=== PATIENT | female | born 1975 | race Caucasian/White ===

== ENCOUNTER 2022-01-31 04:40 | Inpatient (IN) | payer OTHER ==
[~2022-01-31] VITALS: Ht 147.3 cm; Wt 60.8 kg
[2022-01-31 05:57] LABS: Basophils # (auto) 0.1 10 ^3/uL (0-0.2); Basophils % (auto) 0.6 % (0.0-2.0); Eosinophils # (auto) 0.2 10 ^3/uL (0-0.8); Eosinophils % (auto) 2.7 % (0.0-7.0); Hematocrit 41.7 % (36.0-46.0); Hemoglobin 12.7 g/dL (12.2-16.2); Lymphocytes # (auto) 1.8 10 ^3/uL (0.4-5.4); Lymphocytes % (auto) 22.4 % (10.0-50.0); Mean Corpuscular Hemoglobin 24.8 pg (28.0-32.0); Mean Corpuscular Hgb Conc. 30.5 g/dL (32.0-36.0); Mean Corpuscular Volume 81.2 fL (80.0-100.0); Monocytes # (auto) 0.6 10 ^3/uL (0-1.3); Monocytes % (auto) 7.1 % (0.0-12.0); Neutrophils # (auto) 5.5 10 ^3/uL (1.6-8.6); Neutrophils % (auto) 67.2 % (37.0-80.0); Nucleated Red Blood Cells % 0.1 %; Red Blood Cells 5.13 10^6/uL (4.0-5.20); Red Cell Distribution Width 14.4 % (11.8-14.3); White Blood Cell 8.1 10^3/uL (4.4-10.8)
[2022-01-31 06:16] LABS: Alanine Aminotransferase 83 U/L (13-56); Albumin 2.8 g/dL (3.4-5.0); Anion Gap 8 (5-15); Aspartate Aminotransferase 68 U/L (15-37); Blood Urea Nitrogen 9 mg/dL (7-18); Carbon Dioxide 20 mmol/L (21-32); Chloride 110 mmol/L (98-107); GFR African American 172 mL/min; GFR Non-African American 142 mL/min; Glucose 118 mg/dL (74-106); Sodium 138 mmol/L (136-145)
[2022-01-31 06:18] LABS: Alkaline Phosphatase 97 U/L (45-117); Bilirubin, Total 0.3 mg/dL (0.2-1.0); Total Protein 6.9 g/dL (6.4-8.2)
[2022-01-31] MEDS ORDERED: ONDANSETRON HCL 4 MG/2 ML VIAL IV ONE (06:45)
[2022-01-31] MEDS ORDERED: SODIUM CHLORIDE 0.9% 1,000 ML IV ONE ×2 (06:45→10:45)
[2022-01-31] MEDS ORDERED: methylPREDNISolone SOD SUCC 125 MG/2 ML VL IV ONE (06:45)
[2022-01-31 07:12] LABS: Urine Bacteria FEW /hpf (None Seen); Urine Blood Negative /uL (Negative); Urine Hyaline Cast FEW /lpf (0 - 2); Urine Mucus FEW (None Seen); Urine Specific Gravity 1.018 (1.001-1.035); Urine WBC 75 /hpf (0 - 5)
[2022-01-31] MEDS ORDERED: ACETAMINOPHEN 325 MG TAB PO ONE (07:15)
[2022-01-31 07:22] LABS: Alcohol, Urine < 3.0 mg/dL (0-10); Amphetamine Screen, Urine POSITIVE (NEGATIVE); Barbiturate Scree,Urine NEGATIVE (NEGATIVE); Benzodiazephine Screen, Urine NEGATIVE (NEGATIVE); Cannabinoid Screen, Urine NEGATIVE (NEGATIVE); Cocaine Screen, Urine NEGATIVE (NEGATIVE); Opiate Scree,Urine NEGATIVE (NEGATIVE); Phencyclidine Screen, Urine NEGATIVE (NEGATIVE)
[2022-01-31] MEDS ORDERED: cefTRIAXone 1GM/50ML D5W 50 ML IV ONE (09:45)
[2022-01-31] MEDS ORDERED: ONDANSETRON HCL 4 MG/2 ML VIAL IV PRN (10:45)
[2022-01-31] MEDS ORDERED: MORPHINE SULFATE INJ 2 MG/ml SYRG IV PRN (10:45)
[2022-01-31] MEDS: FUROSEMIDE 20 MG/2 ML VIAL IV ONE ×2 (10:45→15:57)
[2022-01-31] MEDS ORDERED: IPRATROPIUM BROM 0.5 MG/2.5ML INH SOL NEB PRN (10:45)
[2022-01-31] MEDS ORDERED: ALBUTEROL SULF 2.5 MG/0.5ML(0.5%) NEB SOLN NEB PRN (10:45)
[2022-01-31] MEDS ORDERED: NITROGLYCERIN 0.4 MG SL TAB SL PRN (10:45)
[2022-01-31] MEDS ORDERED: ENOXAPARIN SOD 60 MG/0.6 ML SYRINGE SC ONE (10:45)
[2022-01-31] MEDS ORDERED: AZITHROMYCIN 500MG/ 250ML 250 ML IV ONE (10:45)
[2022-01-31] MEDS ORDERED: LORazepam 2MG/ML-1ML VIAL IV ONE (11:15)
[2022-01-31 12:15] LABS: Cholesterol 114 mg/dL (< 200)
[2022-01-31 12:18] LABS: HDL Cholesterol 53 mg/dL (40-59); LDL Cholesterol 60 mg/dL (< 100); Triglycerides 97 mg/dL (< 150)
[2022-01-31] MEDS: NTG 0.1MG/HR TOPICAL PATCH TD ONE ×2 (12:35→15:03)
[2022-01-31] MEDS: ALBUTEROL SULF 2.5 MG/0.5ML(0.5%) NEB SOLN NEB SCH ×2 (12:52→18:01)
[2022-01-31] MEDS: IPRATROPIUM BROM 0.5 MG/2.5ML INH SOL NEB SCH ×2 (12:52→18:01)
[2022-01-31 15:03] VITALS: BP 111/88
[2022-02-01] MEDS: MORPHINE SULFATE INJ 2 MG/ml SYRG IV PRN (01:34)
[2022-02-01 04:36] LABS: Basophils # (auto) 0 10 ^3/uL (0-0.2); Basophils % (auto) 0.1 % (0.0-2.0); Eosinophils # (auto) 0 10 ^3/uL (0-0.8); Mean Corpuscular Hgb Conc. 32.3 g/dL (32.0-36.0); Monocytes # (auto) 0.8 10 ^3/uL (0-1.3)
[2022-02-01 04:39] LABS: Hematocrit 36.1 % (36.0-46.0); Hemoglobin 11.6 g/dL (12.2-16.2); Lymphocytes % (auto) 9.7 % (10.0-50.0); Mean Corpuscular Hemoglobin 25.3 pg (28.0-32.0); Mean Corpuscular Volume 78.3 fL (80.0-100.0); Monocytes % (auto) 7.3 % (0.0-12.0); Neutrophils # (auto) 8.8 10 ^3/uL (1.6-8.6); Neutrophils % (auto) 82.9 % (37.0-80.0); Nucleated Red Blood Cells % 0.1 %; Red Blood Cells 4.61 10^6/uL (4.0-5.20); Red Cell Distribution Width 14.3 % (11.8-14.3); White Blood Cell 10.6 10^3/uL (4.4-10.8)
[2022-02-01 04:52] LABS: Albumin 2.7 g/dL (3.4-5.0); BUN/Creatinine Ratio 22.1; Calcium 8.4 mg/dL (8.5-10.1); Potassium 4.3 mmol/L (3.5-5.1)
[2022-02-01 04:55] LABS: Bilirubin, Total 0.2 mg/dL (0.2-1.0); Total Protein 6.4 g/dL (6.4-8.2)
[2022-02-01] MEDS: ALBUTEROL SULF 2.5 MG/0.5ML(0.5%) NEB SOLN NEB SCH ×3 (05:27→18:14)
[2022-02-01] MEDS: IPRATROPIUM BROM 0.5 MG/2.5ML INH SOL NEB SCH ×3 (05:27→18:14)
[2022-02-01] MEDS: FUROSEMIDE 20 MG/2 ML VIAL IV SCH ×2 (06:22→18:29)
[2022-02-01] MEDS: cefTRIAXone 1GM/50ML D5W 50 ML IV SCH (09:09)
[2022-02-01] MEDS: NICOTINE 14 MG/24HR TOPICAL PATCH TD SCH (10:00)
[2022-02-01] MEDS: AZITHROMYCIN 500MG/ 250ML 250 ML IV SCH (10:11)
[2022-02-01] MEDS: methylPREDNISolone SOD SUCC 125 MG/2 ML VL IV SCH ×2 (10:11→22:10)
[2022-02-01] MEDS: ACETAMINOPHEN 325 MG TAB PO PRN (10:12)
[2022-02-01 10:55] VITALS: BP 128/62
[2022-02-01 13:00] VITALS: BP 108/83
[2022-02-01 17:00] VITALS: BP 133/84
[2022-02-01 22:00] VITALS: BP 117/63
[2022-02-02 05:00] VITALS: BP 141/78
[2022-02-02] MEDS: FUROSEMIDE 20 MG/2 ML VIAL IV SCH (05:13)
[2022-02-02 05:50] LABS: Basophils # (auto) 0 10 ^3/uL (0-0.2); Basophils % (auto) 0.2 % (0.0-2.0); Eosinophils # (auto) 0 10 ^3/uL (0-0.8); Hematocrit 36.6 % (36.0-46.0); Lymphocytes # (auto) 0.7 10 ^3/uL (0.4-5.4); Monocytes # (auto) 0.2 10 ^3/uL (0-1.3); Monocytes % (auto) 1.8 % (0.0-12.0)
[2022-02-02 05:57] LABS: Hemoglobin 11.5 g/dL (12.2-16.2); Lymphocytes % (auto) 5.8 % (10.0-50.0); Mean Corpuscular Hemoglobin 24.3 pg (28.0-32.0); Mean Corpuscular Hgb Conc. 31.3 g/dL (32.0-36.0); Mean Corpuscular Volume 77.4 fL (80.0-100.0); Neutrophils # (auto) 11.6 10 ^3/uL (1.6-8.6); Neutrophils % (auto) 92.2 % (37.0-80.0); Red Blood Cells 4.72 10^6/uL (4.0-5.20); Red Cell Distribution Width 14.2 % (11.8-14.3); White Blood Cell 12.6 10^3/uL (4.4-10.8)
[2022-02-02 06:08] LABS: Calcium 8.8 mg/dL (8.5-10.1); Potassium 4.1 mmol/L (3.5-5.1)
[2022-02-02] MEDS: IPRATROPIUM BROM 0.5 MG/2.5ML INH SOL NEB SCH ×3 (06:16→19:08)
[2022-02-02] MEDS: ALBUTEROL SULF 2.5 MG/0.5ML(0.5%) NEB SOLN NEB SCH ×3 (06:16→19:08)
[2022-02-02] MEDS: methylPREDNISolone SOD SUCC 125 MG/2 ML VL IV SCH (08:39)
[2022-02-02] MEDS: NICOTINE 14 MG/24HR TOPICAL PATCH TD SCH (08:39)
[2022-02-02] MEDS: cefTRIAXone 1GM/50ML D5W 50 ML IV SCH (08:39)
[2022-02-02] MEDS: AZITHROMYCIN 500MG/ 250ML 250 ML IV SCH (08:39)
[2022-02-02 09:00] VITALS: BP 135/69
[2022-02-02] MEDS ORDERED: LISINOPRIL 10 MG TAB PO ONE (10:15)
[2022-02-02] MEDS ORDERED: CARVEDILOL 3.125 MG TAB PO ONE (10:15)
[2022-02-02] MEDS ORDERED: THIAMINE 100mg/ml INJ (200mg/2ml VIAL) IV ONE (10:15)
[2022-02-02] MEDS ORDERED: SPIRONOLACTONE 25 MG TAB PO ONE (10:15)
[2022-02-02 13:00] VITALS: BP 130/74
[2022-02-02 17:00] VITALS: BP 151/77
[2022-02-02] MEDS: MORPHINE SULFATE INJ 2 MG/ml SYRG IV PRN (17:42)
[2022-02-02] MEDS: FUROSEMIDE 40 MG/4 ML VIAL IV SCH (17:49)
[2022-02-02] MEDS: ACETAMINOPHEN 325 MG TAB PO PRN (17:50)
[2022-02-02 22:00] VITALS: BP 133/74
[2022-02-02] MEDS: CARVEDILOL 3.125 MG TAB PO SCH (22:07)
[2022-02-02] MEDS: POTASSIUM CHL 20 Meq TABLET PO SCH (22:07)
[2022-02-03] MEDS: FUROSEMIDE 40 MG/4 ML VIAL IV SCH ×2 (04:51→17:16)
[2022-02-03] MEDS: ACETAMINOPHEN 325 MG TAB PO PRN ×2 (04:51→12:22)
[2022-02-03 04:58] LABS: BUN/Creatinine Ratio 41.1; Calcium 8.5 mg/dL (8.5-10.1); Potassium 4.6 mmol/L (3.5-5.1)
[2022-02-03 05:00] VITALS: BP 123/68
[2022-02-03] MEDS: IPRATROPIUM BROM 0.5 MG/2.5ML INH SOL NEB SCH ×3 (06:44→19:08)
[2022-02-03] MEDS: ALBUTEROL SULF 2.5 MG/0.5ML(0.5%) NEB SOLN NEB SCH ×3 (06:44→19:08)
[2022-02-03 08:00] VITALS: BP 129/67
[2022-02-03] MEDS: cefTRIAXone 1GM/50ML D5W 50 ML IV SCH (09:19)
[2022-02-03] MEDS: NICOTINE 14 MG/24HR TOPICAL PATCH TD SCH (09:35)
[2022-02-03] MEDS: SPIRONOLACTONE 25 MG TAB PO SCH (09:36)
[2022-02-03] MEDS: POTASSIUM CHL 20 Meq TABLET PO SCH ×2 (09:36→21:59)
[2022-02-03] MEDS: LISINOPRIL 10 MG TAB PO SCH (10:00)
[2022-02-03] MEDS ORDERED: THIAMINE 100mg/ml INJ (200mg/2ml VIAL) IV SCH (10:00)
[2022-02-03] MEDS ORDERED: LISINOPRIL 10 MG TAB PO SCH (10:00)
[2022-02-03] MEDS: CARVEDILOL 3.125 MG TAB PO SCH ×2 (10:33→21:59)
[2022-02-03] MEDS: LORazepam 0.5 MG TAB PO PRN ×2 (10:33→21:59)
[2022-02-03 11:01] VITALS: BP 129/67
[2022-02-03 12:00] VITALS: BP 118/73
[2022-02-03 16:00] VITALS: BP 102/62
[2022-02-03 22:00] VITALS: BP 108/72
[2022-02-04 05:00] VITALS: BP 103/56
[2022-02-04] MEDS: FUROSEMIDE 40 MG/4 ML VIAL IV SCH (06:02)
[2022-02-04 06:10] LABS: Calcium 8.8 mg/dL (8.5-10.1); Potassium 4.3 mmol/L (3.5-5.1)
[2022-02-04 06:12] LABS: BUN/Creatinine Ratio 54.2
[2022-02-04] MEDS: ALBUTEROL SULF 2.5 MG/0.5ML(0.5%) NEB SOLN NEB SCH ×3 (06:36→18:07)
[2022-02-04] MEDS: IPRATROPIUM BROM 0.5 MG/2.5ML INH SOL NEB SCH ×3 (06:36→18:07)
[2022-02-04] MEDS: MORPHINE SULFATE INJ 2 MG/ml SYRG IV PRN (09:15)
[2022-02-04 09:23] VITALS: BP 119/75
[2022-02-04] MEDS ORDERED: KETOROLAC TROMETH 30 MG/ML 1ML VIAL IV ONE (09:45)
[2022-02-04] MEDS: LISINOPRIL 10 MG TAB PO SCH (10:00)
[2022-02-04] MEDS: THIAMINE HCL 100 MG TAB PO SCH (10:18)
[2022-02-04] MEDS: SPIRONOLACTONE 25 MG TAB PO SCH (10:18)
[2022-02-04] MEDS: cefTRIAXone 1GM/50ML D5W 50 ML IV SCH (10:18)
[2022-02-04] MEDS: CARVEDILOL 3.125 MG TAB PO SCH ×2 (10:19→21:24)
[2022-02-04] MEDS: POTASSIUM CHL 20 Meq TABLET PO SCH (10:19)
[2022-02-04] MEDS: NICOTINE 14 MG/24HR TOPICAL PATCH TD SCH (10:21)
[2022-02-04] MEDS: ACETAMINOPHEN 325 MG TAB PO PRN (10:24)
[2022-02-04 11:04] LABS: Hepatitis A Ab IgM Negative
[2022-02-04 11:05] LABS: Hepatitis B Core IgM Negative; Hepatitis C Antibody Negative (Negative)
[2022-02-04 13:00] VITALS: BP 105/61
[2022-02-04] MEDS: FUROSEMIDE 40 MG TAB PO SCH (13:20)
[2022-02-04 16:51] VITALS: BP 106/64
[2022-02-04] MEDS: KETOROLAC TROMETH 30 MG/ML 1ML VIAL IV PRN (21:32)
[2022-02-04 22:00] VITALS: BP 100/55
[2022-02-05] MEDS: KETOROLAC TROMETH 30 MG/ML 1ML VIAL IV PRN (04:47)
[2022-02-05 05:00] VITALS: BP 115/77
[2022-02-05] MEDS: ALBUTEROL SULF 2.5 MG/0.5ML(0.5%) NEB SOLN NEB SCH ×2 (07:00→12:14)
[2022-02-05] MEDS: IPRATROPIUM BROM 0.5 MG/2.5ML INH SOL NEB SCH ×2 (07:00→12:14)
[2022-02-05 09:00] VITALS: BP 98/63
[2022-02-05] MEDS ORDERED: POTA-220 PO (09:49)
[2022-02-05] MEDS ORDERED: FURO1TAB31 PO (09:49)
[2022-02-05] MEDS ORDERED: CAR3125T PO (09:49)
[2022-02-05] MEDS ORDERED: SPIR25TA PO (09:49)
[2022-02-05] MEDS ORDERED: LISI-716 PO (09:49)
[2022-02-05] MEDS: NICOTINE 14 MG/24HR TOPICAL PATCH TD SCH (10:00)
[2022-02-05] MEDS: LISINOPRIL 10 MG TAB PO SCH (10:00)
[2022-02-05] MEDS: cefTRIAXone 1GM/50ML D5W 50 ML IV SCH (10:29)
[2022-02-05] MEDS: THIAMINE HCL 100 MG TAB PO SCH (10:30)
[2022-02-05] MEDS: SPIRONOLACTONE 25 MG TAB PO SCH (10:31)
[2022-02-05] MEDS: CARVEDILOL 3.125 MG TAB PO SCH (10:33)
[2022-02-05] MEDS: POTASSIUM CHL 20 Meq TABLET PO SCH (10:34)
[2022-02-05] MEDS: FUROSEMIDE 40 MG TAB PO SCH (10:35)
[2022-02-05 13:33] VITALS: BP 98/63
== END 2022-02-05 14:01 | disposition home or self-care (01) | DRG 133 ==
LOC: ER 04:40 → TELE 10:48 → TELE-CENTR 02-01 10:45
PROVIDERS: ADMIT Registered Nurse; ATTEND Internal Medicine
DX: J96.00 Acute respiratory failure, unspecified whether with hypoxia or hypercapnia (principal); I50.21 Acute systolic (congestive) heart failure; I42.8 Other cardiomyopathies; N18.6 End stage renal disease; Z71.41 Alcohol abuse counseling and surveillance of alcoholic; F15.10 Other stimulant abuse, uncomplicated; F10.10 Alcohol abuse, uncomplicated; K76.0 Fatty (change of) liver, not elsewhere classified; F32.A Depression, unspecified; F17.210 Nicotine dependence, cigarettes, uncomplicated; Z20.822 Contact with and (suspected) exposure to COVID-19; R51.9 Headache, unspecified; R56.9 Unspecified convulsions; F41.9 Anxiety disorder, unspecified; R80.9 Proteinuria, unspecified; Z71.6 Tobacco abuse counseling; N39.0 Urinary tract infection, site not specified
CPT/HCPCS: 36415; 70450; 71045; 71275; 80048; 80053; 80061; 80074; 80307; 80320; 81001; 81025; 83036; 83605; 83880; 84484; 84702; 85025; 87040; 87086; 93005; 93306; 94640; 96365; 96375; G0378; J0696; J1885; J2405

== ENCOUNTER 2022-02-14 15:46 | Inpatient (IN) | payer OTHER ==
[~2022-02-14] VITALS: Ht 147.3 cm; Wt 61.5 kg
[~2022-02-14 15:46] MED LIST: CAR3125T PO; FURO1TAB31 PO; LISI-716 PO; POTA-220 PO; SPIR25TA PO
[2022-02-14] MEDS ORDERED: ASPirin 81 mg TAB PO ONE (16:30)
[2022-02-14 16:51] LABS: Eosinophils # (auto) 0.1 10 ^3/uL (0-0.8); Lymphocytes # (auto) 1.2 10 ^3/uL (0.4-5.4); Monocytes # (auto) 0.7 10 ^3/uL (0-1.3)
[2022-02-14 16:52] LABS: Basophils # (auto) 0.1 10 ^3/uL (0-0.2); Eosinophils % (auto) 1.6 % (0.0-7.0); Hematocrit 38.5 % (36.0-46.0); Lymphocytes % (auto) 19.3 % (10.0-50.0); Mean Corpuscular Hemoglobin 24.5 pg (28.0-32.0); Mean Corpuscular Hgb Conc. 31.3 g/dL (32.0-36.0); Mean Corpuscular Volume 78.4 fL (80.0-100.0); Monocytes % (auto) 10.5 % (0.0-12.0); Neutrophils # (auto) 4.4 10 ^3/uL (1.6-8.6); Neutrophils % (auto) 67.6 % (37.0-80.0); Red Blood Cells 4.91 10^6/uL (4.0-5.20); Red Cell Distribution Width 14.7 % (11.8-14.3); White Blood Cell 6.5 10^3/uL (4.4-10.8)
[2022-02-14 16:54] LABS: Amphetamine Screen, Urine POSITIVE (NEGATIVE); Barbiturate Scree,Urine NEGATIVE (NEGATIVE); Benzodiazephine Screen, Urine NEGATIVE (NEGATIVE); Cannabinoid Screen, Urine NEGATIVE (NEGATIVE); Cocaine Screen, Urine NEGATIVE (NEGATIVE); Opiate Scree,Urine NEGATIVE (NEGATIVE); Phencyclidine Screen, Urine NEGATIVE (NEGATIVE)
[2022-02-14 17:07] LABS: Calcium 8.4 mg/dL (8.5-10.1); Magnesium 2.1 mg/dL (1.6-2.6); Potassium 3.5 mmol/L (3.5-5.1)
[2022-02-14 17:10] LABS: BUN/Creatinine Ratio 14.7; Bilirubin, Total 0.2 mg/dL (0.2-1.0); Total Protein 7.2 g/dL (6.4-8.2)
[2022-02-14] MEDS ORDERED: MORPHINE SULFATE INJ 2 MG/ml SYRG IV PRN (19:15)
[2022-02-14] MEDS ORDERED: NITROGLYCERIN 0.4 MG SL TAB SL PRN (19:15)
[2022-02-14 19:30] LABS: Urine Bacteria FEW /hpf (None Seen); Urine Blood Negative /uL (Negative); Urine Mucus FEW (None Seen); Urine Specific Gravity 1.029 (1.001-1.035); Urine WBC 37 /hpf (0 - 5)
[2022-02-14] MEDS ORDERED: POTASSIUM CHL 20 Meq TABLET PO ONE (19:45)
[2022-02-14] MEDS ORDERED: FUROSEMIDE 100 MG/10ML VIAL IV ONE (19:45)
[2022-02-14] MEDS ORDERED: cefTRIAXone 1GM/50ML D5W 50 ML IV ONE (20:00)
[2022-02-14] MEDS: CARVEDILOL 3.125 MG TAB PO SCH (22:18)
[2022-02-14] MEDS: HYDROcodone-ACET 5/325MG TAB PO PRN (22:18)
[2022-02-15 03:38] VITALS: BP 114/77
[2022-02-15 05:00] VITALS: BP_SYST 114; BP_SYST 142; BP_DIAS 57; BP_DIAS 77
[2022-02-15] MEDS: HYDROcodone-ACET 5/325MG TAB PO PRN ×2 (06:12→17:22)
[2022-02-15 07:42] LABS: Basophils # (auto) 0.1 10 ^3/uL (0-0.2); Basophils % (auto) 1.2 % (0.0-2.0); Eosinophils # (auto) 0.2 10 ^3/uL (0-0.8); Nucleated Red Blood Cells % 0.2 %; White Blood Cell 4.9 10^3/uL (4.4-10.8)
[2022-02-15 07:44] LABS: Eosinophils % (auto) 4.7 % (0.0-7.0); Hematocrit 38.8 % (36.0-46.0); Hemoglobin 12.4 g/dL (12.2-16.2); Lymphocytes # (auto) 1.1 10 ^3/uL (0.4-5.4); Lymphocytes % (auto) 23.1 % (10.0-50.0); Mean Corpuscular Hemoglobin 24.7 pg (28.0-32.0); Mean Corpuscular Volume 77.3 fL (80.0-100.0); Monocytes # (auto) 0.6 10 ^3/uL (0-1.3); Monocytes % (auto) 11.8 % (0.0-12.0); Neutrophils # (auto) 2.9 10 ^3/uL (1.6-8.6); Neutrophils % (auto) 59.2 % (37.0-80.0); Red Blood Cells 5.02 10^6/uL (4.0-5.20); Red Cell Distribution Width 14.5 % (11.8-14.3)
[2022-02-15 07:58] LABS: Albumin 2.9 g/dL (3.4-5.0); Calcium 8.3 mg/dL (8.5-10.1); Potassium 4.2 mmol/L (3.5-5.1)
[2022-02-15 08:02] LABS: BUN/Creatinine Ratio 20.4; Bilirubin, Total 0.6 mg/dL (0.2-1.0)
[2022-02-15 09:00] VITALS: BP 118/71
[2022-02-15] MEDS: cefTRIAXone 1GM/50ML D5W 50 ML IV SCH (09:31)
[2022-02-15] MEDS: SPIRONOLACTONE 25 MG TAB PO SCH (09:32)
[2022-02-15] MEDS: CARVEDILOL 3.125 MG TAB PO SCH ×2 (09:32→21:49)
[2022-02-15] MEDS: POTASSIUM CHL 10 Meq TABLET PO SCH (09:34)
[2022-02-15] MEDS: DAPAGLIFLOZIN 5 MG TAB PO SCH (09:34)
[2022-02-15] MEDS: NICOTINE 7MG/24HR TOPICAL PATCH TD SCH (09:35)
[2022-02-15] MEDS: ENOXAPARIN SOD 40 MG/0.4 ML SYRINGE SC SCH (09:35)
[2022-02-15] MEDS: LISINOPRIL 10 MG TAB PO SCH (09:35)
[2022-02-15] MEDS ORDERED: FUROSEMIDE 20 MG/2 ML VIAL IV SCH (10:00)
[2022-02-15] MEDS ORDERED: FUROSEMIDE 20 MG/2 ML VIAL IV ONE (10:00)
[2022-02-15 13:00] VITALS: BP 116/59
[2022-02-15] MEDS ORDERED: ACETAMINOPHEN 325 MG TAB PO PRN (13:15)
[2022-02-15 18:12] VITALS: BP 129/91
[2022-02-15] MEDS: FUROSEMIDE 40 MG/4 ML VIAL IV SCH (18:38)
[2022-02-16] MEDS: HYDROcodone-ACET 5/325MG TAB PO PRN ×3 (01:25→22:46)
[2022-02-16 05:00] VITALS: BP 106/67
[2022-02-16] MEDS: FUROSEMIDE 40 MG/4 ML VIAL IV SCH (05:23)
[2022-02-16 05:41] LABS: BUN/Creatinine Ratio 39.3; Calcium 8.7 mg/dL (8.5-10.1); Potassium 3.8 mmol/L (3.5-5.1)
[2022-02-16 08:51] VITALS: BP 91/58
[2022-02-16] MEDS: cefTRIAXone 1GM/50ML D5W 50 ML IV SCH (09:36)
[2022-02-16] MEDS: DAPAGLIFLOZIN 5 MG TAB PO SCH (09:56)
[2022-02-16] MEDS: CARVEDILOL 3.125 MG TAB PO SCH ×2 (09:56→21:28)
[2022-02-16] MEDS: POTASSIUM CHL 10 Meq TABLET PO SCH (09:57)
[2022-02-16] MEDS: ENOXAPARIN SOD 40 MG/0.4 ML SYRINGE SC SCH (09:57)
[2022-02-16] MEDS: NICOTINE 7MG/24HR TOPICAL PATCH TD SCH (09:57)
[2022-02-16] MEDS: SPIRONOLACTONE 25 MG TAB PO SCH (10:00)
[2022-02-16] MEDS: LISINOPRIL 10 MG TAB PO SCH (10:00)
[2022-02-16 13:00] VITALS: BP 106/60
[2022-02-16] MEDS ORDERED: LISI-716 PO (15:03)
[2022-02-16] MEDS ORDERED: POTA-220 PO (15:03)
[2022-02-16] MEDS ORDERED: CAR3125T PO (15:03)
[2022-02-16] MEDS ORDERED: SPIR25TA PO (15:03)
[2022-02-16] MEDS ORDERED: FURO1TAB31 PO (15:03)
[2022-02-16 16:39] VITALS: BP 99/70
[2022-02-16 22:00] VITALS: BP 106/62
[2022-02-17 05:08] VITALS: BP 100/59
[2022-02-17 09:00] VITALS: BP 102/62
[2022-02-17] MEDS: HYDROcodone-ACET 5/325MG TAB PO PRN ×2 (09:09→18:25)
[2022-02-17] MEDS: cefTRIAXone 1GM/50ML D5W 50 ML IV SCH (09:09)
[2022-02-17] MEDS ORDERED: FUROSEMIDE 40 MG TAB PO SCH (10:00)
[2022-02-17] MEDS: SPIRONOLACTONE 25 MG TAB PO SCH (10:00)
[2022-02-17] MEDS: DAPAGLIFLOZIN 5 MG TAB PO SCH (10:01)
[2022-02-17] MEDS: CARVEDILOL 3.125 MG TAB PO SCH ×2 (10:01→21:25)
[2022-02-17] MEDS: POTASSIUM CHL 10 Meq TABLET PO SCH (10:01)
[2022-02-17] MEDS: NICOTINE 7MG/24HR TOPICAL PATCH TD SCH (10:02)
[2022-02-17] MEDS: LISINOPRIL 10 MG TAB PO SCH (10:02)
[2022-02-17] MEDS: ENOXAPARIN SOD 40 MG/0.4 ML SYRINGE SC SCH (10:02)
[2022-02-17 13:00] VITALS: BP 102/58
[2022-02-17 13:25] VITALS: BP 102/62
[2022-02-17 16:42] VITALS: BP 90/60
[2022-02-17 22:00] VITALS: BP 97/52
[2022-02-18 05:00] VITALS: BP 95/52
[2022-02-18 08:00] VITALS: BP 112/66
[2022-02-18] MEDS: cefTRIAXone 1GM/50ML D5W 50 ML IV SCH (09:00)
== END 2022-02-18 10:00 | disposition home or self-care (01) | DRG 194 ==
LOC: ER 15:46 → TELE 19:19 → TELE-WESTW 02-15 03:50
PROVIDERS: ADMIT Registered Nurse; ATTEND Hospitalist
DX: I50.23 Acute on chronic systolic (congestive) heart failure (principal); I21.A1 Myocardial infarction type 2; I27.20 Pulmonary hypertension, unspecified; E88.09 Other disorders of plasma-protein metabolism, not elsewhere classified; D50.9 Iron deficiency anemia, unspecified; F15.10 Other stimulant abuse, uncomplicated; I42.0 Dilated cardiomyopathy; I42.7 Cardiomyopathy due to drug and external agent; N39.0 Urinary tract infection, site not specified; I16.9 Hypertensive crisis, unspecified; N20.0 Calculus of kidney; Z20.822 Contact with and (suspected) exposure to COVID-19; F32.A Depression, unspecified; G40.909 Epilepsy, unspecified, not intractable, without status epilepticus; J45.909 Unspecified asthma, uncomplicated; Z59.00 Homelessness unspecified; Z83.3 Family history of diabetes mellitus; Z87.442 Personal history of urinary calculi; Z91.19 Patient's noncompliance with other medical treatment and regimen; Z71.6 Tobacco abuse counseling; Z72.0 Tobacco use
CPT/HCPCS: 36415; 71045; 80048; 80053; 80307; 81001; 83735; 83880; 84484; 85025; 85379; 87081; 87086; 93005; 96365; 96366; 96375; G0378; J0696